=== PATIENT | female | born 1990 | race American Indian/Alaskan Native ===

== ENCOUNTER 2021-08-07 09:39 | Emergency (ER) | payer OTHER ==
[2021-08-07] MEDS ORDERED: ACETAMINOPHEN 500 MG TAB PO ONE (10:39)
--- NOTE | 2021-08-07 10:41 | Emergency Department Report ---
ED HPI - General Chief complaint: Vaginal Bleeding Stated complaint: VAG BLEEDING X9WKS PREG Time Seen by Provider: 08/07/21 10:37 Source: patient Mode of arrival: Ambulatory Limitations: No Limitations - History of Present Illness Initial comments: 31 y/o female comes with vaginal spotting and pelvic pain. In vaginal spotting since yesterday. She states that she is having cramps. She is 7 para 5 1 . She admits to nausea no vomiting. She reports she is followed by Roseline MOLD SHIFTER. Her last delivery of a baby was August 2019. States that she is taking nothing for discomfort. Is any complications of her last pregnancies MD Complaint: abdominal pain, vaginal bleeding Onset/Timin -: days(s) Location: pelvis Radiation: none Severity scale (0 -10): 6 Quality: cramping Consistency: constant Improves with: none Worsens with: none Associated symptoms: nausea/vomiting (No vomiting), vaginal bleeding (Spotting) Vaginal bleeding: light :: Yes Number of weeks : 9 OB History - Current : no complications Pre- care: followed by OB (Claudia MOLD SHIFTER) - Related Data : 7 Para: 5 Ab: 1 Allergies Allergy/AdvReac Type Severity Reaction Status Date / Time No Known Allergies Allergy Unverified 08/07/21 09:58 ED Review of Systems ROS: Stated complaint: VAG BLEEDING X9WKS PREG Other details as noted in HPI Comment: All other systems reviewed and negative ED Past Medical Hx - Past Medical History Previous Medical History?: Yes Additional medical history: - Surgical History Past Surgical History?: Yes Additional Surgical History: x 5, x 1 ED Physical Exam - General Limitations: No Limitations General appearance: alert - Head Head exam: Present: atraumatic, normocephalic - Eye Eye exam: Present: normal appearance - ENT ENT exam: Present: mucous membranes moist - Neck Neck exam: Present: normal inspection. Absent: full ROM - Respiratory Respiratory exam: Absent: respiratory distress, accessory muscle use - Cardiovascular Cardiovascular Exam: Present: regular rate - GI/Abdominal GI/Abdominal exam: Present: soft. Absent: distended, tenderness - Extremities Exam Extremities exam: Present: normal inspection, full ROM - Back Exam Back exam: Present: normal inspection, full ROM - Neurological Exam Neurological exam: Present: alert, oriented X3, normal gait - Psychiatric Psychiatric exam: Present: normal affect, normal mood - Skin Skin exam: Present: warm, dry, intact, normal color. Absent: rash ED Course Vital Signs 08/07/21 09:59 Temperature 98.4 F Pulse Rate 95 H Respiratory 20 Rate Blood Pressure 121/65 [Right] O2 Sat by Pulse 100 Oximetry ED Medical Decision Making - Lab Data Result diagrams: 08/07/21 10:45 Lab Results 08/07/21 08/07/21 08/07/21 Range/Units 10:45 10:45 10:46 WBC 5.3 (4.5-11.0) K/mm3 RBC 4.13 (3.65-5.03) M/mm3 Hgb 11.7 (10.1-14.3) gm/dl Hct 35.6 (30.3-42.9) % MCV 86 (79-97) fl MCH 28 (28-32) pg MCHC 33 (30-34) % RDW 13.3 (13.2-15.2) % Plt Count 372 (140-440) K/mm3 Lymph % (Auto) 29.6 (13.4-35.0) % [place] % (Auto) 9.0 H (0.0-7.3) % Eos % (Auto) 1.8 (0.0-4.3) % Baso % (Auto) 0.6 (0.0-1.8) % Lymph # (Auto) 1.6 (1.2-5.4) K/mm3 [place] # (Auto) 0.5 (0.0-0.8) K/mm3 Eos # (Auto) 0.1 (0.0-0.4) K/mm3 Baso # (Auto) 0.0 (0.0-0.1) K/mm3 Seg Neutrophils % 59.0 (40.0-70.0) % Seg Neutrophils # 3.1 (1.8-7.7) K/mm3 HCG, Quant (0-4) mIU/mL Urine Color Yellow (Yellow) Urine Turbidity Slightly-cloudy (Clear) Urine pH 9.0 H (5.0-7.0) Ur Specific Shannon 1.012 (1.003-1.030) Urine Protein <15 mg/dl (Negative) mg/dL Urine Glucose (UA) Neg (Negative) mg/dL Urine Ketones Neg (Negative) mg/dL Urine Blood Mod (Negative) Urine Nitrite Neg (Negative) Urine Bilirubin Neg (Negative) Urine Urobilinogen < 2.0 (<2.0) mg/dL Ur Leukocyte Esterase Neg (Negative) Urine WBC (Auto) 3.0 (0.0-6.0) /HPF Urine RBC (Auto) 3.0 (0.0-6.0) /HPF U Epithel Cells (Auto) 16.0 H (0-13.0) /HPF Urine Bacteria (Auto) 1+ (Negative) /HPF Blood Type B POSITIVE Ord Rhogam Gestat Weeks Rh pos WEEKS 08/07/21 Range/Units 11:47 WBC (4.5-11.0) K/mm3 RBC (3.65-5.03) M/mm3 Hgb (10.1-14.3) gm/dl Hct (30.3-42.9) % MCV (79-97) fl MCH (28-32) pg MCHC (30-34) % RDW (13.2-15.2) % Plt Count (140-440) K/mm3 Lymph % (Auto) (13.4-35.0) % [place] % (Auto) (0.0-7.3) % Eos % (Auto) (0.0-4.3) % Baso % (Auto) (0.0-1.8) % Lymph # (Auto) (1.2-5.4) K/mm3 [place] # (Auto) (0.0-0.8) K/mm3 Eos # (Auto) (0.0-0.4) K/mm3 Baso # (Auto) (0.0-0.1) K/mm3 Seg Neutrophils % (40.0-70.0) % Seg Neutrophils # (1.8-7.7) K/mm3 HCG, Quant 4675 H (0-4) mIU/mL Urine Color (Yellow) Urine Turbidity (Clear) Urine pH (5.0-7.0) Ur Specific Shannon (1.003-1.030) Urine Protein (Negative) mg/dL Urine Glucose (UA) (Negative) mg/dL Urine Ketones (Negative) mg/dL Urine Blood (Negative) Urine Nitrite (Negative) Urine Bilirubin (Negative) Urine Urobilinogen (<2.0) mg/dL Ur Leukocyte Esterase (Negative) Urine WBC (Auto) (0.0-6.0) /HPF Urine RBC (Auto) (0.0-6.0) /HPF U Epithel Cells (Auto) (0-13.0) /HPF Urine Bacteria (Auto) (Negative) /HPF Blood Type Ord Rhogam Gestat Weeks WEEKS - Radiology Data Radiology results: report reviewed [facility] [address] [id number] Ultrasound Report Signed Patient: ANDRÉS GARCIA MR#: [id number] : 1990 Acct:[id number] Age/Sex: 31 / F ADM Date: 08/07/21 Loc: ED Attending Dr: Ordering Physician: ERICH BELL Date of Service: 08/07/21 Procedure(s): US OB <= 14 weeks fetus Accession Number(s): [id number] cc: ERICH BELL ULTRASOUND OBSTETRIC INDICATION: Vaginal bleeding with pelvic pain. TECHNIQUE: Transabdominal. COMPARISON: None available. FINDINGS: GESTATIONAL SAC: Well-defined oval shape and intrauterine in location. YOLK SAC: No significant abnormality. EMBRYO/FETUS: No significant abnormality. - [place]-Rump Length = 0.8 cm = 6 weeks, 5 day(s). - Heart Rate = 154 beats per minute. ADNEXA: The ovaries are not visualized. No significant adnexal abnormality is seen. FREE FLUID: None. ADDITIONAL FINDINGS: None. IMPRESSION: 1. Single, living intrauterine with estimated sonographic age of 6 weeks, 5 day(s). 2. No significant abnormality to explain the patient's pain/bleeding. Signer Name: Justin Leo MD Signed: 08/07/2021 12:57 PM Workstation Name: [id number] Transcribed By: MN Dictated By: Justin Leo MD Electronically Authenticated By: Justin Leo MD Signed Date/Time: 08/07/21 1257 DD/ 1256 TD/TT: - Medical Decision Making 31 y/o female comes with vaginal spotting and pelvic pain. In vaginal spotting since yesterday. She states that she is having cramps. She is 7 para 5 1 . She admits to nausea no vomiting. She reports she is followed by Roseline MOLD SHIFTER. Her last delivery of a baby was August 2019. States that she is taking nothing for discomfort. Is any complications of her last pregnancies Critical care attestation.: If time is entered above; I have spent that time in minutes in the direct care of this critically ill patient, excluding procedure time. ED Disposition Clinical Impression: Vaginal spotting Disposition: HOME / SELF CARE / HOMELESS Is pt being admited?: No Does the pt Need Aspirin: No Condition: Stable Instructions: Vaginal Bleeding During , First Trimester Additional Instructions: Ultrasound shows you are 6 weeks and 5 days with an intrauterine gestation sac. Urinalysis is negative for any infection. Your hCG was 4600. Tylenol is the only thing you can take for pain. Increase your water intake advance your diet as tolerated. You can consume prema rio [id number] prema root for your nausea. Referrals: PRIMARY CARE, [Primary Care Provider] - 3-5 Days Claudia MOLD SHIFTER [Other] - 3-5 Days Forms: Work/School Release Form(ED) Time of Disposition: 13:07
[2021-08-07 11:16] LABS: Basophils % (Auto) 0.6 % (0.0-1.8); Eosinophils # (Auto) 0.1 K/mm3 (0.0-0.4); Eosinophils % (Auto) 1.8 % (0.0-4.3); Hematocrit 35.6 % (30.3-42.9); Hemoglobin 11.7 gm/dl (10.1-14.3); Lymphocytes # (Auto) 1.6 K/mm3 (1.2-5.4); Lymphocytes % (Auto) 29.6 % (13.4-35.0); Mean Corpuscular HGB Conc 33 % (30-34); Mean Corpuscular Volume 86 fl (79-97); Monocytes # (Auto) 0.5 K/mm3 (0.0-0.8); Platelet Count 372 K/mm3 (140-440); Red Blood Count 4.13 M/mm3 (3.65-5.03); Red Cell Distribution Width 13.3 % (13.2-15.2)
[2021-08-07 11:35] LABS: Bacteria,Urine 1+ /HPF (Negative); Bilirubin,Urine NEG (Negative); Blood,Urine MOD (Negative); Color,Urine Yellow (Yellow); Protein,Urine <15 mg/dL mg/dL (Negative); Urobilinogen,Urine < 2.0 mg/dL (<2.0)
--- NOTE | 2021-08-07 13:02 | Ultrasound Report ---
ULTRASOUND OBSTETRIC INDICATION: Vaginal bleeding with pelvic pain. TECHNIQUE: Transabdominal. COMPARISON: None available. FINDINGS: GESTATIONAL SAC: Well-defined oval shape and intrauterine in location. YOLK SAC: No significant abnormality. EMBRYO/FETUS: No significant abnormality. - [place]-Rump Length = 0.8 cm = 6 weeks, 5 day(s). - Heart Rate = 154 beats per minute. ADNEXA: The ovaries are not visualized. No significant adnexal abnormality is seen. FREE FLUID: None. ADDITIONAL FINDINGS: None. IMPRESSION: 1. Single, living intrauterine with estimated sonographic age of 6 weeks, 5 day(s). 2. No significant abnormality to explain the patient's pain/bleeding. Signer Name: Justin Leo MD Signed: 08/07/2021 12:57 PM Workstation Name: [id number]
[2021-08-07 13:14] VITALS: BP 124/71
== END 2021-08-07 13:14 | disposition home or self-care (01) ==
LOC: ED 09:39
DX: O46.91 Antepartum hemorrhage, unspecified, first trimester (principal); Z3A.09 9 weeks gestation of pregnancy
CPT/HCPCS: 36415; 76801; 81001; 84702; 85025; 86900; 86901; 99284

== ENCOUNTER 2022-02-05 10:30 | Emergency (ER) | payer OTHER ==
[2022-02-05 11:18] VITALS: BP 137/96
--- NOTE | 2022-02-05 11:19 | Emergency Department Report ---
Stated Complaint: LT LEG PAIN - HPI History of Present Illness: 31-year-old female no significant past medical history reports to the ER with complaints of left knee pain for about 2 weeks with a sensation of pins and needle that radiates up and down her left leg. Patient denies no direct injury to her left knee. Patient reports no other acute symptoms at this time. - ROS Review of Systems: Left knee pain - Exam Physical Exam: Left knee pain, patient is limping due to her left knee pain. No obvious deformity noted. MSE screening note: Focused history and physical exam performed. Due to findings the following was ordered: MSE completed. Left knee x-ray ordered. Patient to be seen by another provider for further evaluation. ED Disposition for MSE Condition: Stable
--- NOTE | 2022-02-05 11:37 | XRay Report ---
Left knee 3 views INDICATION: Knee pain FINDINGS: Alignment appears normal. No joint effusion is seen. No acute fracture or dislocation IMPRESSION: No acute findings. Signer Name: Arash Rivera MD Signed: 02/05/2022 11:33 AM Workstation Name: [id number]
--- NOTE | 2022-02-05 13:31 | Emergency Department Report ---
ED General Adult HPI - General Chief complaint: Extremity Problem,Nontraumatic Stated complaint: LT LEG PAIN Source: patient Mode of arrival: Ambulatory Limitations: No Limitations - History of Present Illness Initial comments: 31-year-old female no significant past medical history reports to the ER with complaints of left knee pain for about 2 weeks with a sensation of pins and needle that radiates up and down her left leg. Patient denies no direct injury to her left knee. Patient reports no other acute symptoms at this time. Severity scale (0 -10): 5 - Related Data Previous Rx's Medication Instructions Recorded Last Taken Type Ibuprofen [Motrin] 800 mg PO Q8HR PRN 6 Days #18 02/05/22 Unknown Rx tablet Allergies Allergy/AdvReac Type Severity Reaction Status Date / Time No Known Allergies Allergy Unverified 08/07/21 09:58 ED Review of Systems ROS: Stated complaint: LT LEG PAIN Other details as noted in HPI Constitutional: denies: chills, fever Eyes: denies: eye pain, eye discharge, vision change ENT: denies: ear pain, throat pain Respiratory: denies: cough, shortness of breath, wheezing Cardiovascular: denies: chest pain, palpitations Endocrine: no symptoms reported Gastrointestinal: denies: abdominal pain, nausea, diarrhea Genitourinary: denies: urgency, dysuria, discharge Musculoskeletal: arthralgia, other (That left knee pain). denies: back pain, joint swelling Skin: denies: rash, lesions Neurological: denies: headache, weakness, paresthesias Psychiatric: denies: anxiety, depression Hematological/Lymphatic: denies: easy bleeding, easy bruising ED Past Medical Hx - Past Medical History Previous Medical History?: No Additional medical history: - Surgical History Additional Surgical History: x 5, x 1 - Medications Home Medications: Home Medications Medication Instructions Recorded Confirmed Last Taken Type Ibuprofen [Motrin] 800 mg PO Q8HR PRN 6 Days #02/05/22 Unknown Rx tablet ED Physical Exam - General Limitations: No Limitations General appearance: alert, in no apparent distress - Head Head exam: Present: atraumatic, normocephalic - Eye Eye exam: Present: normal appearance - ENT ENT exam: Present: mucous membranes moist - Neck Neck exam: Present: normal inspection - Respiratory Respiratory exam: Present: normal lung sounds bilaterally. Absent: respiratory distress - Cardiovascular Cardiovascular Exam: Present: regular rate, normal rhythm. Absent: systolic murmur, diastolic murmur, rubs, gallop - GI/Abdominal GI/Abdominal exam: Present: soft, normal bowel sounds - Extremities Exam Extremities exam: Present: normal inspection - Expanded Lower Extremity Exam Left Knee exam: Present: full ROM, tenderness. Absent: swelling, deformity, dislocation - Back Exam Back exam: Present: normal inspection - Neurological Exam Neurological exam: Present: alert, oriented X3 - Psychiatric Psychiatric exam: Present: normal affect, normal mood - Skin Skin exam: Present: warm, dry, intact, normal color. Absent: rash ED Course Vital Signs 02/05/22 10:55 Temperature 98.2 F Pulse Rate 98 H Respiratory 16 Rate Blood Pressure 137/96 [Right] O2 Sat by Pulse 97 Oximetry ED Medical Decision Making - Radiology Data Radiology results: report reviewed [facility] [address] [place] [address] XRay Report Signed Patient: ANDRÉS GARCIA MR#: [id number] : 1990 Acct:[id number] Age/Sex: 31 / F ADM Date: 02/05/22 Loc: ED Attending Dr: Ordering Physician: ISHAAN GARCIA NP Date of Service: 02/05/22 Procedure(s): XR knee 3V LT Accession Number(s): [id number] cc: ISHAAN GARCIA NP Fluoro Time In Minutes: Left knee 3 views INDICATION: Knee pain FINDINGS: Alignment appears normal. No joint effusion is seen. No acute fracture or dislocation IMPRESSION: No acute findings. Signer Name: Arash Albarado MD Signed: 02/05/2022 11:33 AM Workstation Name: [id number] Transcribed By: CALDERON Dictated By: NICOLLE ALBARADO MD Electronically Authenticated By: NICOLLE ALBARADO MD Signed Date/Time: 02/05/221132 DD/ 31 TD/TT: - Medical Decision Making 31-year-old female reports left knee pain for about 2 weeks. No injury reported. No other acute signs and symptoms reported. Patient has tenderness to the left knee. No swelling noted. No posterior knee pain noted. No calf pain noted. X-ray of left knee with no acute process noted. Patient informed of x-ray results. No further work-up is needed at this time. Patient informed pain likely due to muscle and ligament and tendon pain. Patient given oral medication for pain relief. Patient agrees with plan of care verbalized understanding. Patient stable for discharge. Patient informed that if symptoms are to continue or get worse to report back to the ER. Vital Signs 02/05/22 10:55 Temperature 98.2 F Pulse Rate 98 H Respiratory 16 Rate Blood Pressure 137/96 [Right] O2 Sat by Pulse 97 Oximetry Critical care attestation.: If time is entered above; I have spent that time in minutes in the direct care of this critically ill patient, excluding procedure time. ED Disposition Clinical Impression: Knee pain, left Qualifiers: Chronicity: acute Qualified Code(s): M25.562 - Pain in left knee Disposition: 01 HOME / SELF CARE / HOMELESS Is pt being admited?: No Condition: Stable Instructions: Acute Knee Pain, Adult, Acute Knee Pain, Adult, [id number] Prescriptions: Ibuprofen [Motrin] 800 mg PO Q8HR PRN 6 Days #18 tablet PRN Reason: Pain , Severe (7-10)
[2022-02-05] MEDS ORDERED: IBUPROFEN 800 MG TAB PO ONE (14:10)
[2022-02-05] MEDS ORDERED: ACETAMINOPHEN 325 MG TAB PO ONE (14:11)
== END 2022-02-06 09:51 | disposition home or self-care (01) ==
LOC: ED 10:30
DX: M25.562 Pain in left knee (principal)
CPT/HCPCS: 99283

== ENCOUNTER 2022-03-04 21:08 | Emergency (ER) | payer OTHER ==
[2022-03-04 22:52] LABS: Bilirubin,Urine NEG (Negative); Blood,Urine SM (Negative); Color,Urine Yellow (Yellow); Protein,Urine <15 mg/dL mg/dL (Negative)
[2022-03-04 22:55] LABS: Bacteria,Urine 4+ /HPF (Negative); Mucus,Urine FEW /HPF; Sperm,Urine FEW /HPF (NP); Urobilinogen,Urine < 2 mg/dL (<2.0)
[2022-03-05 00:07] LABS: Basophils % (Auto) 0.4 % (0.0-1.8); Eosinophils # (Auto) 0.1 K/mm3 (0.0-0.4); Eosinophils % (Auto) 1.1 % (0.0-4.3); Hematocrit 36.2 % (30.3-42.9); Hemoglobin 11.9 gm/dl (10.1-14.3); Lymphocytes # (Auto) 2.3 K/mm3 (1.2-5.4); Lymphocytes % (Auto) 22.6 % (13.4-35.0); Mean Corpuscular HGB Conc 33 % (30-34); Mean Corpuscular Volume 85 fl (79-97); Monocytes # (Auto) 0.7 K/mm3 (0.0-0.8); Monocytes % (Auto) 7.2 % (0.0-7.3); Platelet Count 398 K/mm3 (140-440); Red Blood Count 4.27 M/mm3 (3.65-5.03); Red Cell Distribution Width 14.5 % (13.2-15.2)
[2022-03-05] MEDS ORDERED: oxyCODONE /ACETAMINOPHEN 5-325MG TAB PO ONE (08:25)
[2022-03-05] MEDS ORDERED: ONDANSETRON 4 MG ODT TAB PO ONE (08:25)
--- NOTE | 2022-03-05 09:46 | Emergency Department Report ---
ED General Adult HPI - General Chief complaint: Vaginal Bleeding Stated complaint: ABD PAIN X 2 DAYS Time Seen by Provider: 03/05/22 07:26 Source: patient Mode of arrival: Ambulatory Limitations: No Limitations - History of Present Illness Initial comments: 31-year-old female no significant past medical history reports to the ER with abdominal pain since yesterday in her pelvic area. Patient currently report her pain is 5 out of 10. Patient endorses nausea. Denies vomiting and no diarrhea. Patient denies no vaginal discharge but does report vaginal spotting. Along with dysuria. No other acute signs or symptoms reported at this time. Severity scale (0 -10): 6 - Related Data Previous Rx's Medication Instructions Recorded Last Taken Type Ibuprofen [Motrin] 800 mg PO Q8HR PRN 6 Days #18 02/05/22 Unknown Rx tablet Ibuprofen [Motrin] 800 mg PO Q8HR PRN 6 Days #18 03/05/22 Unknown Rx tablet Ondansetron [Zofran Odt] 4 mg PO Q12HR 3 Days #6 tab.rapdis 03/05/22 Unknown Rx Sulfamethoxazole/Trimethoprim 1 each PO BID 5 Days #10 tab 03/05/22 Unknown Rx [Bactrim DS TAB] Allergies Allergy/AdvReac Type Severity Reaction Status Date / Time No Known Allergies Allergy Unverified 08/07/21 09:58 ED Review of Systems ROS: Stated complaint: ABD PAIN X 2 DAYS Other details as noted in HPI Comment: All other systems reviewed and negative Gastrointestinal: abdominal pain, nausea. denies: vomiting, diarrhea Genitourinary: dysuria ED Past Medical Hx - Past Medical History Previous Medical History?: No Additional medical history: - Surgical History Additional Surgical History: x 5, x 1 - Social History Smoking Status: Current Every Day Smoker Substance Use Type: Marijuana - Medications Home Medications: Home Medications Medication Instructions Recorded Confirmed Last Taken Type Ibuprofen [Motrin] 800 mg PO Q8HR PRN 6 Days #18 02/05/22 Unknown Rx tablet Ibuprofen [Motrin] 800 mg PO Q8HR PRN 6 Days #18 03/05/22 Unknown Rx tablet Ondansetron [Zofran Odt] 4 mg PO Q12HR 3 Days #6 tab.rapdis 03/05/22 Unknown Rx Sulfamethoxazole/Trimethoprim 1 each PO BID 5 Days #10 tab 03/05/22 Unknown Rx [Bactrim DS TAB] ED Physical Exam - General Limitations: No Limitations General appearance: alert, in no apparent distress - Head Head exam: Present: atraumatic, normocephalic - Eye Eye exam: Present: normal appearance - ENT ENT exam: Present: mucous membranes moist - Neck Neck exam: Present: normal inspection - Respiratory Respiratory exam: Present: normal lung sounds bilaterally. Absent: respiratory distress - Cardiovascular Cardiovascular Exam: Present: regular rate, normal rhythm. Absent: systolic murmur, diastolic murmur, rubs, gallop - GI/Abdominal GI/Abdominal exam: Present: soft, tenderness (Suprapubic area), normal bowel sounds. Absent: distended, guarding, rebound - Extremities Exam Extremities exam: Present: normal inspection - Back Exam Back exam: Present: normal inspection - Neurological Exam Neurological exam: Present: alert, oriented X3 - Psychiatric Psychiatric exam: Present: normal affect, normal mood - Skin Skin exam: Present: warm, dry, intact, normal color. Absent: rash ED Course Vital Signs 03/04/22 03/05/22 21:13 12:17 Temperature 97.2 F L 98.6 F Pulse Rate 107 H 83 Respiratory 20 16 Rate Blood Pressure 134/91 Blood Pressure 132/85 [Right] O2 Sat by Pulse 99 100 Oximetry ED Medical Decision Making - Lab Data Result diagrams: 03/04/22 23:19 03/05/22 09:31 - Radiology Data . [facility] [address] [place] [address] Ultrasound Report Signed Patient: ANDRÉS GARCIA MR#: [id number] : 1990 Acct:[id number] Age/Sex: 31 / F ADM Date: 03/04/22 Loc: ED Attending Dr: Ordering Physician: ISHAAN GARCIA NP Date of Service: 03/05/22 Procedure(s): US pelvic complete Accession Number(s): [id number] cc: ISHAAN GARCIA NP Pelvic Ultrasound HISTORY: pelvic pain. TECHNIQUE: Grayscale and color imaging performed. COMPARISON: None FINDINGS: Uterus measures 9.1 x 4.6 x 5.5 cm with endometrial complex measuring 4 mm. Both ovaries are normal in size with preserved blood flow. Several small follicles are present which are physiologic. No significant pelvic free fluid. IMPRESSION: Unremarkable exam. Signer Name: Fernando Blunt MD Signed: 03/05/2022 9:46 AM Workstation Name: [id number] Transcribed By: TAISHA Dictated By: Fernando Blunt MD Electronically Authenticated By: Fernando Blunt MD Signed Date/Time: 03/05/22945 DD/ 4 TD/TT - Medical Decision Making 31-year-old female no significant past medical history reports to the ER with a bdominal pain since yesterday in her pelvic area. Patient currently report her pain is 5 out of 10. Patient endorses nausea. Denies vomiting and no diarrhea. Patient denies no vaginal discharge but does report vaginal spotting. Along with dysuria. No other acute signs or symptoms reported at this time. On physical exam patient has subpubic pain no acute abdominal signs or symptoms noted. No other acute clinical findings noted. Patient referred back to the exam. Ultrasound with no acute process noted Labs with no acute process noted CBC CMP unremarkable. Patient has acute UTI present. Patient informed of her imaging and lab results. Patient informed she has acute UTI. Patient informed that she will be started on antibiotic for UTI treatment. Patient informed to follow her primary care provider No other acute signs or symptoms reported. Patient informed if symptoms are to get worse to report back to the ER. Vital Signs 03/04/22 03/05/22 21:13 12:17 Temperature 97.2 F L 98.6 F Pulse Rate 107 H 83 Respiratory 20 16 Rate Blood Pressure 134/91 Blood Pressure 132/85 [Right] O2 Sat by Pulse 99 100 Oximetry Lab Results 03/04/22 03/04/22 03/04/22 Range/Units 23:19 23:19 Unknown WBC 10.0 (4.5-11.0) K/mm3 RBC 4.27 (3.65-5.03) M/mm3 Hgb 11.9 (10.1-14.3) gm/dl Hct 36.2 (30.3-42.9) % MCV 85 (79-97) fl MCH 28 (28-32) pg MCHC 33 (30-34) % RDW 14.5 (13.2-15.2) % Plt Count 398 (140-440) K/mm3 Lymph % (Auto) 22.6 (13.4-35.0) % Pine % (Auto) 7.2 (0.0-7.3) % Eos % (Auto) 1.1 (0.0-4.3) % Baso % (Auto) 0.4 (0.0-1.8) % Lymph # (Auto) 2.3 (1.2-5.4) K/mm3 Pine # (Auto) 0.7 (0.0-0.8) K/mm3 Eos # (Auto) 0.1 (0.0-0.4) K/mm3 Baso # (Auto) 0.0 (0.0-0.1) K/mm3 Seg Neutrophils % 68.7 (40.0-70.0) % Seg Neutrophils # 6.9 (1.8-7.7) K/mm3 Sodium (137-145) mmol/L Potassium (3.6-5.0) mmol/L Chloride (98-107) mmol/L Carbon Dioxide (22-30) mmol/L Anion Gap mmol/L BUN (7-17) mg/dL Creatinine (0.6-1.2) mg/dL Estimated GFR ml/min BUN/Creatinine Ratio % Glucose (65-100) mg/dL Calcium (8.4-10.2) mg/dL Total Bilirubin (0.1-1.2) mg/dL AST (5-40) units/L ALT (7-56) units/L Alkaline Phosphatase (35-129) units/L Total Protein (6.3-8.2) g/dL Albumin (3.9-5) g/dL Albumin/Globulin Ratio % Lipase (13-60) units/L HCG, Quant < 2.0 (0-4) mIU/mL Urine Color Yellow (Yellow) Urine Turbidity Slightly-cloudy (Clear) Urine pH 6.0 (5.0-7.0) Ur Specific [place] 1.015 (1.003-1.030) Urine Protein <15 mg/dl (Negative) mg/dL Urine Glucose (UA) Neg (Negative) mg/dL Urine Ketones Neg (Negative) mg/dL Urine Blood Sm (Negative) Urine Nitrite Neg (Negative) Urine Bilirubin Neg (Negative) Urine Urobilinogen < 2 (<2.0) mg/dL Ur Leukocyte Esterase Mod (Negative) Urine WBC (Auto) 104.0 H (0.0-6.0) /HPF Urine RBC (Auto) 4.0 (0.0-6.0) /HPF U Epithel Cells (Auto) 1.0 (0-13.0) /HPF Urine Bacteria (Auto) 4+ (Negative) /HPF Urine Mucus Few /HPF Urine Yeast (Budding) 1+ /HPF Urine Sperm Few (WAFER SLICER) /HPF 03/05/22 Range/Units 09:31 WBC (4.5-11.0) K/mm3 RBC (3.65-5.03) M/mm3 Hgb (10.1-14.3) gm/dl Hct (30.3-42.9) % MCV (79-97) fl MCH (28-32) pg MCHC (30-34) % RDW (13.2-15.2) % Plt Count (140-440) K/mm3 Lymph % (Auto) (13.4-35.0) % Pine % (Auto) (0.0-7.3) % Eos % (Auto) (0.0-4.3) % Baso % (Auto) (0.0-1.8) % Lymph # (Auto) (1.2-5.4) K/mm3 Pine # (Auto) (0.0-0.8) K/mm3 Eos # (Auto) (0.0-0.4) K/mm3 Baso # (Auto) (0.0-0.1) K/mm3 Seg Neutrophils % (40.0-70.0) % Seg Neutrophils # (1.8-7.7) K/mm3 Sodium 142 (137-145) mmol/L Potassium 4.4 (3.6-5.0) mmol/L Chloride 105.2 (98-107) mmol/L Carbon Dioxide 25 (22-30) mmol/L Anion Gap 16 mmol/L BUN 8 (7-17) mg/dL Creatinine 0.7 (0.6-1.2) mg/dL Estimated GFR > 60 ml/min BUN/Creatinine Ratio 11 % Glucose 83 (65-100) mg/dL Calcium 9.7 (8.4-10.2) mg/dL Total Bilirubin 0.20 (0.1-1.2) mg/dL AST 19 (5-40) units/L ALT 23 (7-56) units/L Alkaline Phosphatase 78 (35-129) units/L Total Protein 7.3 (6.3-8.2) g/dL Albumin 4.2 (3.9-5) g/dL Albumin/Globulin Ratio 1.4 % Lipase 35 (13-60) units/L HCG, Quant (0-4) mIU/mL Urine Color (Yellow) Urine Turbidity (Clear) Urine pH (5.0-7.0) Ur Specific [place] (1.003-1.030) Urine Protein (Negative) mg/dL Urine Glucose (UA) (Negative) mg/dL Urine Ketones (Negative) mg/dL Urine Blood (Negative) Urine Nitrite (Negative) Urine Bilirubin (Negative) Urine Urobilinogen (<2.0) mg/dL Ur Leukocyte Esterase (Negative) Urine WBC (Auto) (0.0-6.0) /HPF Urine RBC (Auto) (0.0-6.0) /HPF U Epithel Cells (Auto) (0-13.0) /HPF Urine Bacteria (Auto) (Negative) /HPF Urine Mucus /HPF Urine Yeast (Budding) /HPF Urine Sperm (WAFER SLICER) /HPF Critical care attestation.: If time is entered above; I have spent that time in minutes in the direct care of this critically ill patient, excluding procedure time. ED Disposition Clinical Impression: Acute UTI, Vaginal spotting, Pelvic pain Disposition: 01 HOME / SELF CARE / HOMELESS Is pt being admited?: No Condition: Stable Instructions: Pelvic Pain, Female, [id number], Urinary Tract Infection, Adult, Dysfunctional Uterine Bleeding Prescriptions: Sulfamethoxazole/Trimethoprim [Bactrim DS TAB] 1 each PO BID 5 Days #10 tab Ibuprofen [Motrin] 800 mg PO Q8HR PRN 6 Days #18 tablet PRN Reason: Pain , Severe (7-10) Ondansetron [Zofran Odt] 4 mg PO Q12HR 3 Days #6 tab.[email or web address] Referrals: BIN RICHARDS MD [Primary Care Provider] - 3-5 Days
--- NOTE | 2022-03-05 09:50 | Ultrasound Report ---
Pelvic Ultrasound HISTORY: pelvic pain. TECHNIQUE: Grayscale and color imaging performed. COMPARISON: None FINDINGS: Uterus measures 9.1 x 4.6 x 5.5 cm with endometrial complex measuring 4 mm. Both ovaries are normal in size with preserved blood flow. Several small follicles are present which are physiologic. No significant pelvic free fluid. IMPRESSION: Unremarkable exam. Signer Name: Fernando Blunt MD Signed: 03/05/2022 9:46 AM Workstation Name: [id number]
[2022-03-05 10:57] LABS: Alanine Aminotransferase 23 units/L (7-56); Albumin 4.2 g/dL (3.9-5); Blood Urea Nitrogen 8 mg/dL (7-17); Calcium 9.7 mg/dL (8.4-10.2); Hemolysis Index 4
[2022-03-05 11:02] LABS: BUN/Creatinine Ratio 11
[2022-03-05 12:18] VITALS: BP 132/85
== END 2022-03-05 12:17 | disposition home or self-care (01) ==
LOC: ED 21:08
DX: R10.9 Unspecified abdominal pain (principal); N39.0 Urinary tract infection, site not specified; N93.9 Abnormal uterine and vaginal bleeding, unspecified; R10.2 Pelvic and perineal pain; F17.200 Nicotine dependence, unspecified, uncomplicated; F12.90 Cannabis use, unspecified, uncomplicated
CPT/HCPCS: 36415; 76830; 76856; 80053; 81001; 83690; 84702; 85025; 99284; J3490; Q0162